=== PATIENT | female | born 1945 | race Caucasian/White ===

== ENCOUNTER 2017-09-27 17:03 | Emergency (ER) | payer OTHER, BC ==
[~2017-09-27] VITALS: Ht 157.5 cm; Wt 110.6 kg
[2017-09-27] MEDS ORDERED: FLEXERIL10 MG PO (19:53)
[2017-09-27 20:00] VITALS: BP 152/84
== END 2017-09-27 20:01 | disposition home or self-care (01) ==
LOC: EME 17:03
DX: M54.5 Low back pain (principal); M25.551 Pain in right hip; W19.XXXA Unspecified fall, initial encounter; Y92.009 Unspecified place in unspecified non-institutional (private) residence as the place of occurrence of the external cause; M81.0 Age-related osteoporosis without current pathological fracture; M16.11 Unilateral primary osteoarthritis, right hip; M47.896 Other spondylosis, lumbar region; M43.16 Spondylolisthesis, lumbar region; Z87.442 Personal history of urinary calculi
CPT/HCPCS: 72100; 73502; 99281; 99284